=== PATIENT | female | born 2000 | race Caucasian/White ===

== ENCOUNTER 2021-05-17 12:33 | Emergency (ER) | payer OTHER ==
[~2021-05-17] VITALS: Ht 160 cm; Wt 55.0 kg
[2021-05-17 12:44] VITALS: BP 127/77
[2021-05-17] MEDS ORDERED: CEFD300C3 (12:48)
[2021-05-17] MEDS ORDERED: RT-ALBUINH IH (12:56)
[2021-05-17] MEDS ORDERED: PRD50T PO (12:56)
--- NOTE | 2021-05-17 12:56 | ED Cough/URI ---
General Chief Complaint: Cough/Cold/Flu Symptoms Stated Complaint: SOB Nursing Triage Note: ARRIVED VIA AMB. STATES 1 WEEK AGO SHE WAS PUT ON A ABX FOR STREP, 2 DAYS AGO DX WITH PNEUMONIA AND PUT ON A INHALER. COVID WAS NEG THEN ALSO. STATES SHE IS NOT FEELING MUCH BETTER. History of Present Illness Date Seen by Provider: May 17, 2021 Time Seen by Provider: 12:45 Initial Comments 20-year-old female presents with several days of head cold, sore throat and cough. Seen in outpatient urgent care, diagnosed with strep, treated with antibiotic then seen 2 days later and was given Tessalon Perles for her cough. Patient with past medical history of asthma. Main complaint she feels tightness in her chest and difficulty breathing, she states she is using an albuterol inhaler occasionally. No fever no shortness of air at rest. Tested for Covid and flu and was negative. Allergies and Home Medications Allergies Coded Allergies: azithromycin (Verified Allergy, Severe, HIVES, 05/17/21) Patient Home Medication List Home Medication List Reviewed: Yes Albuterol Sulfate (Proair Hfa) 1 Puff Puff, 2 PUFF IH Q4H Prescribed by: FRANCISCO KINSEY on 05/17/21 1256 Cefdinir (Cefdinir) 300 Mg Capsule, (Reported) Entered as Reported by: POLINA JOHNSON on 05/17/21 1248 Last Action: New Order Prednisone (Prednisone) 50 Mg Tab, 50 MG PO DAILY Prescribed by: FRANCISCO KINSEY on 05/17/21 1256 Review of Systems Review of Systems Constitutional: No chills, No fever; malaise EENTM: nose congestion, throat pain Respiratory: cough, short of breath, wheezing Cardiovascular: No chest pain, No edema, No palpitations Gastrointestinal: No abdominal pain, No nausea, No vomiting Musculoskeletal: No back pain, No joint pain Skin: No change in color, No rash Past Rjpjvab-Vtdpfs-Dpiqqx Hx Patient Social History Tobacco Use?: No Smoking Status: Never a Smoker Substance use?: No Alcohol Use?: Yes Alcohol Frequency: Once in a while Physical Exam Vital Signs - First Documented 05/17/21 12:44 Temp 35.8 Pulse 99 Resp 16 B/P (MAP) 127/77 (94) Pulse Ox 56 O2 Delivery Room Air Capillary Refill : Less Than 3 Seconds Height: '" Weight: lbs. oz. kg; 21.00 BMI Method: General Appearance: WD/WN, no apparent distress Eyes: Bilateral Eye PERRL, Bilateral Eye EOMI HEENT: PERRL/EOMI, normal ENT inspection, TMs normal, pharynx normal Neck: non-tender, supple Respiratory: chest non-tender, lungs clear, normal breath sounds, no respiratory distress, no accessory muscle use Cardiovascular: regular rate, rhythm, no edema Gastrointestinal: non tender, soft Neurologic/Psychiatric: alert, normal mood/affect Skin: normal color, warm/dry Progress/Results/Core Measures Suspected Sepsis SIRS Temperature: Pulse: 99 Respiratory Rate: 16 Blood Pressure 127 /77 Mean: 94 Results/Orders My Orders Orders - FRANCISCO KINSEY DO Chest 1 View Ap/Pa Only (05/17/21 12:52) Vital Signs/I&O 05/17/21 12:44 Temp 35.8 Pulse 99 Resp 16 B/P (MAP) 127/77 (94) Pulse Ox 56 O2 Delivery Room Air Capillary Refill : Less Than 3 Seconds Blood Pressure Mean: 94 Departure Impression Primary Impression: Bronchitis Disposition: 01 HOME, SELF-CARE Condition: Stable Departure-Patient Inst. Referrals: NO,LOCAL PHYSICIAN (PCP/Family) Primary Care Physician Patient Instructions: Viral Upper Respiratory Infection, Adult (DC), Acute Bronchitis, Adult (DC) Add. Discharge Instructions: Follow up with your PCP in 1 week if not improving, sooner if worse All discharge instructions reviewed with patient and/or family. Voiced understanding. Scripts Fluticasone Propionate (Flonase Allergy Relief) 9.9 Ml [place].susp 2 SPRAY NS DAILY, #1 EACH 2 SPRAYS PER NOSTRIL DAILY X 2 DAYS THEN 1 SPRAY DAILY Prov: FRANCISCO KINSEY DO 05/17/21 Albuterol Sulfate (PROAIR HFA) 1 Puff Puff 2 PUFF IH Q4H for Cough, #1 PUFF 1 Refill 1 PUFF = 90 MCG Prov: FRANCISCO KINSEY DO 05/17/21 Prednisone (Prednisone) 50 Mg Tab 50 MG PO DAILY, #5 TAB Prov: JOHNATHANSTFRANCISCO GROVES DO 05/17/21 FRANCISCO KINSEY DO May 17, 2021 12:56
[2021-05-17] MEDS ORDERED: FLUT9.9S NS (13:17)
--- NOTE | 2021-05-17 13:19 | Diagnostic Imaging Report ---
INDICATION: soa, cough. TECHNIQUE: Single view chest 12:43 PM. CORRELATION STUDY: None FINDINGS: The heart size, mediastinal configuration and pulmonary vascularity are within normal limits. The lungs are clear with no consolidating infiltrate. There is no significant effusion or pneumothorax. IMPRESSION: 1. Negative for acute abnormality of the chest. Dictated by: Dictated on workstation # [id number]
== END 2021-05-17 13:29 | disposition home or self-care (01) ==
LOC: ER FS 12:36
DX: J45.909 Unspecified asthma, uncomplicated (principal); Z88.1 Allergy status to other antibiotic agents; Z79.899 Other long term (current) drug therapy
CPT/HCPCS: 71045